=== PATIENT | female | born 2000 | race African-American/Black ===

== ENCOUNTER 2023-09-12 08:36 | Emergency (ER) | payer OTHER, SELFPAY ==
[2023-09-12] MEDS ORDERED: AMOXicillin 250 MG CAP ONE (08:56)
[2023-09-12] MEDS ORDERED: Ketorolac Tromethamine 60 MG/2 ML VIAL ONE (08:56)
== END 2023-09-12 09:45 | disposition home or self-care (01) ==
LOC: NAV ERS 08:36
DX: K02.9 Dental caries, unspecified (principal); I10 Essential (primary) hypertension; F17.290 Nicotine dependence, other tobacco product, uncomplicated
CPT/HCPCS: 96372; 99282; J1885